=== PATIENT | male | born 1995 | race Caucasian/White ===

== ENCOUNTER → 2020-10-21 08:41 | Outpatient (CLI) | payer OTHER, SELFPAY ==
--- NOTE | 2020-10-21 | DI.MRI.S_ITS ---
PROCEDURE: MR SHOULDER RT WO CON INDICATIONS: Unspecified dislocation of right shoulder joint, i TECHNIQUE: Noncontrast oblique coronal T2 fast spin echo with fat saturation, oblique sagittal T1 spin echo and T2 fast spin echo with fat saturation, axial T1 spin echo and T2 fast spin echo with fat saturation through the shoulder. COMPARISON: None. FINDINGS: Image quality: Excellent. Rotator cuff: The supraspinatus, infraspinatus, and subscapularis tendons appear intact throughout. Sagittal images demonstrate no muscle atrophy. Bones and bursae: No bone marrow contusions or fractures. No acromioclavicular joint degeneration. The acromion demonstrates conventional anatomy, without an os acromiale. No pathologic subacromial-subdeltoid or subcoracoid bursal fluid is present. Capsule and soft tissues: 5 mm diameter intra-articular loose body within the subcoracoid recess. Labrum grossly unremarkable The long head of the biceps tendon demonstrates normal location and morphology. The rotator interval appears normal, without fibrosis. The coracohumeral ligament is normal in thickness. IMPRESSION: 1. No rotator cuff tear. 2. Intra-articular loose body. Dictated by: Jeri Falcon M.D. on 10/21/2020 at 9:58 Approved by: Jeri Falcon M.D. on 10/21/2020 at 9:59
== END ==
PROVIDERS: Referring Provider Student in an Organized Health Care Education/Training Program; Visit Provider Student in an Organized Health Care Education/Training Program
DX: S43.004A Unspecified dislocation of right shoulder joint, initial encounter (principal); M24.011 Loose body in right shoulder; X58.XXXA Exposure to other specified factors, initial encounter
CPT/HCPCS: 73221